=== PATIENT | female | born 1990 | race Hispanic/Latino ===

== ENCOUNTER 2019-09-26 16:47 | Emergency (ER) | payer BC, OTHER, SELFPAY ==
--- NOTE | 2019-09-26 18:09 | RAD ---
SINGLE VIEW OF THE CHEST WITH FOUR VIEWS OF THE RIGHT CHEST WALL: Indication: Right sided chest wall pain. FINDINGS: Lungs are clear. There is an azygos lobe. Heart size appears within normal limits. No pleural effusio n is evident. No pneumothorax is demonstrated. No displaced right sided rib fractures evident. IMPRESSION: No displaced right sided rib fractures. POS: BH
--- NOTE | 2019-09-26 18:11 | CT ---
CT CERVICAL SPINE WITHOUT CONTRAST: Indication: History of midline neck pain with motion and movement. Comparison: None. FINDINGS: No acute fracture or subluxation is evident. Spinal alignment appears within normal limits. Osseous c entral canal is preserved. Prevertebral soft tissues are normal appearing. The craniocervical junctio n appears within normal limits. Lung apices are clear. Prevertebral soft tissues appear within normal limits. There are air fluid levels within the maxillary sinuses. IMPRESSION: 1. No acute fracture or subluxation. 2. Air fluid level within the maxillary sinus, suspicious for sinusitis. POS: BH
== END 2019-09-26 18:53 | disposition home or self-care (01) ==
LOC: NAV ERS 16:47
DX: S40.022A Contusion of left upper arm, initial encounter (principal); S20.219A Contusion of unspecified front wall of thorax, initial encounter; M54.2 Cervicalgia; V89.2XXA Person injured in unspecified motor-vehicle accident, traffic, initial encounter
CPT/HCPCS: 72125